=== PATIENT | male | born 1975 | race Caucasian/White ===

== ENCOUNTER 2024-08-23 16:48 | Emergency (ER) | payer MEDICAID ==
[~2024-08-23] VITALS: Ht 185.4 cm; Wt 80.0 kg
[2024-08-23 16:54] VITALS: O2SAT 98
[2024-08-23 17:37] VITALS: TEMP 36.50292
[2024-08-23 19:38] LABS: HEMATOCRIT. 36.7 % (42.0-52.0); HEMOGLOBIN. 11.4 g/dL (14.0-18.0); MEAN CORPUSCULAR HEMOGLOBIN 23.1 pg (28.0-32.0); MEAN CORPUSCULAR HGB CONC 31.1 g/dL (31.0-37.0); MEAN CORPUSCULAR VOLUME 74.2 fL (80.0-94.0); MEAN PLATELET VOLUME 8.4 fl (7.4-10.4); PLATELET 219 x1000/uL (130-400); RED BLOOD CELL COUNT 4.95 mill/uL (4.7-6.1); RED CELL DISTRIBUTION WIDTH 15.6 % (11.6-14.6); WHITE BLOOD COUNT 7.5 x1000/uL (4.5-11.0)
[2024-08-23 19:42] LABS: DIFFERENTIAL COMMENT 1
[2024-08-23 19:43] LABS: CARBON DIOXIDE 28 mEq/L (21-32); CHLORIDE 107 mEq/L (98-107); POTASSIUM 4.6 mEq/L (3.5-5.1); SODIUM 139 mEq/L (136-145)
[2024-08-23 19:44] LABS: CALCIUM 8.9 mg/dL (8.7-10.4)
[2024-08-23 19:49] LABS: CREATININE 1.5 mg/dL (0.6-1.3); GLUCOSE 114 mg/dL (70-105); UREA NITROGEN BLOOD 28 mg/dL (9-23)
[2024-08-23 19:50] LABS: ETHANOL BLOOD < 10 mg/dL (<10)
[2024-08-23 20:40] LABS: HYPOCHROMASIA 2+; MICROCYTOSIS 2+; PLATELET ESTIMATE NORMAL
[2024-08-23 20:41] LABS: OVALOCYTES 1+
[2024-08-23 20:55] VITALS: BP 105/72; PULSE 59; RESP 13; O2SAT 99
== END 2024-08-23 21:00 | disposition home or self-care (01) ==
LOC: ER 16:48
DX: G40.909 Epilepsy, unspecified, not intractable, without status epilepticus (principal); I12.9 Hypertensive chronic kidney disease with stage 1 through stage 4 chronic kidney disease, or unspecified chronic kidney disease; N18.9 Chronic kidney disease, unspecified
CPT/HCPCS: 36415; 80048; 80320; 83735; 85025; 99284; G0480